=== PATIENT | female | born 1995 | race Two or more races ===

== ENCOUNTER 2024-11-16 00:48 | Emergency (ER) | payer MEDICAID ==
[~2024-11-16] VITALS: Ht 165.1 cm; Wt 70.3 kg
[2024-11-16 01:40] LABS: Urine Bacteria None Seen /hpf (None Seen)
[2024-11-16] MEDS ORDERED: LACTATED RINGER'S 1,000 ML IV SCH (01:45)
[2024-11-16 01:52] LABS: Urine Blood Negative /uL (Negative); Urine Clarity Clear (Clear); Urine Color Light-Yellow (Yellow); Urine Mucus FEW (None Seen); Urine Protein, UAD Negative (Negative); Urine Specific Gravity 1.021 (1.001-1.035); Urine Squamous Epithelial Cell MOD /hpf (<5); Urine Urobilinogen Normal (Negative); Urine WBC 4 /HPF (0-5)
[2024-11-16 01:59] LABS: Amphetamine Screen, Urine Neg (NEGATIVE); Barbiturate Scree,Urine Neg (NEGATIVE); Benzodiazephine Screen, Urine Neg (NEGATIVE); Cannabinoid Screen, Urine Pos (NEGATIVE); Cocaine Screen, Urine Neg (NEGATIVE); Opiate Scree,Urine Neg (NEGATIVE); Phencyclidine Screen, Urine Neg (NEGATIVE)
[2024-11-16] MEDS: LACTATED RINGER'S 1,000 ML IV ONE (02:25)
[2024-11-16] MEDS: ONDANSETRON HCL 4 MG/2 ML VIAL IV ONE (02:26)
== END 2024-11-16 03:14 | disposition home or self-care (01) ==
LOC: ER 00:48 → LDRP 01:14
PROVIDERS: ADMIT Obstetrics & Gynecology; ATTEND Obstetrics & Gynecology
DX: O26.892 Other specified pregnancy related conditions, second trimester (principal); R10.9 Unspecified abdominal pain; R42 Dizziness and giddiness; O21.2 Late vomiting of pregnancy; Z3A.21 21 weeks gestation of pregnancy; Z79.899 Other long term (current) drug therapy; Z98.890 Other specified postprocedural states
CPT/HCPCS: 80307; 81001; 81002; 81025; 94760; 96361; 96374; G0378; J2405; 59025; 96360